=== PATIENT | male | born 1990 | race Caucasian/White ===

== ENCOUNTER 2022-03-20 19:33 | Emergency (ER) | payer SELFPAY ==
[2022-03-20 20:51] LABS: ESTIMATED GFR 116 mL/min (>60)
[2022-03-20] MEDS ORDERED: Sodium Chloride 0.9% 75 ML IV SCH (21:00)
[2022-03-20] MEDS ORDERED: Iopamidol 612 MG/ML 100 ML Bottle IV SCH (21:00)
[2022-03-20] MEDS ORDERED: Ketorolac 30 MG/ML SDV IVPUSH STA (21:09)
[2022-03-20] MEDS ORDERED: Sodium Chloride 0.9% 1,000 ML IV SCH (21:15)
== END 2022-03-21 | disposition home or self-care (01) ==
LOC: JP.ED 19:33
DX: K52.9 Noninfective gastroenteritis and colitis, unspecified (principal)
CPT/HCPCS: 36415; 71046; 71046-26; 74177; 80053; 81001; 83605; 83690; 85025; 96361; 96374; 99283; 99284-25; J1885; J3490; J7030; Q9967